=== PATIENT | female | born 1980 | race Two or more races ===

== ENCOUNTER 2019-05-09 23:41 | Emergency (ER) | payer OTHER ==
[2019-05-10 00:56] VITALS: BP 121/79; PULSE 81; TEMP 99.1; BMI 37.2
[2019-05-10] MEDS ORDERED: DIPHTH,PERTUSS(ACELL),TET 0.5 ML DISP.SYRIN IM ONE ×2 (01:42→02:17)
--- NOTE | 2019-05-10 01:42 | PDOC ---
History of Present Illness - General Chief Complaint: Pain, Acute Stated Complaint: INJURY Time Seen by Provider: 05/10/19 01:09 History Source: Patient - History of Present Illness Initial Comments: 05/10/19 01:52 38-year-old female reports that prior to arrival she stepped on a toy piece on the floor cut the left fifth toe at the PIP. Patient is able to wiggle her toes. Positive sensation neurovascularly intact. Past medical history of asthma. Last tetanus unknown Past History - Past Medical History Allergies/Adverse Reactions: Allergies Allergy/AdvReac Type Severity Reaction Status Date / Time No Known Allergies Allergy Verified 05/10/19 00:22 Home Medications: Ambulatory Orders Cephalexin Monohydrate [Keflex -] 250 mg PO Q8H #21 capsule 05/10/19 - Suicide/Smoking/Psychosocial Hx Smoking History: Never smoked Hx Alcohol Use: No Drug/Substance Use Hx: No Review of Systems - Review of Systems Able to Perform ROS?: Yes Is the patient limited Latvian proficient: No Integumentary: Yes: Other (laceration) *Physical Exam - Vital Signs Last Vital Signs Temp Pulse Resp BP Pulse Ox 99.1 F 81 16 121/79 100 05/09/19 23:55 05/09/19 23:55 05/09/19 23:55 05/09/19 23:55 05/09/19 23:55 - Physical Exam General Appearance: Yes: Appropriately Dressed Musculoskeletal: positive: Other (left fifth toe laceration at theplantar aspect at PIP approximately 2 cm. Neurovascularly intact. Able to move the toe) Integumentary: positive: Normal Color, Dry, Warm Neurologic: positive: Fully Oriented, Alert, Normal Mood/Affect Procedures - Consent Consent obtained: Verbal - Laceration/Wound Repair Left Plantar 5th digit Wound Length: to 2.5 cm (legt 5th toe) Wound Explored: clean Wound's Depth, Shape: linear Irrigated w/ Saline: Yes Betadine Prep: Yes Anesthesia: 1% Lidocaine Amount of Anesthetic (ccs): 1 Wound Debrided: minimal Wound Repaired With: Sutures Suture Size/Type: 4:0 Number of Sutures: 5 Layer Closure: No Sterile Dressing Applied: Yes (toe lex taped. bacitracin applied.) Progress Note - Progress Note Progress Note: A: toe laceration P: see procedure note cephalexin wound check with pcp in 2 days if increased redness or pain *DC/Admit/Observation/Transfer Diagnosis at time of Disposition: Laceration of toe Qualifiers: Encounter type: initial encounter Toe: lesser toe Damage to nail status: without damage Foreign body presence: without foreign body Laterality: left Qualified Code(s): S91.115A - Laceration without foreign body of left lesser toe (s) without damage to nail, initial encounter - Discharge Dispostion Disposition: HOME Condition at time of disposition: Fair - Prescriptions Prescriptions: Cephalexin Monohydrate [Keflex -] 250 mg PO Q8H #21 capsule - Referrals Referrals: Ariel Lucero MD [Primary Care Provider] - - Patient Instructions Printed Discharge Instructions: DI for Laceration Repair -- Simple Additional Instructions: Keep area clean dry and intact Keep dressing on until tomorrow If any increased bleeding through the dressing return immediately to emergency department you may put bacitracin to the site Please return in 10 days for suture removal. Please return immediately to emergency department or primary care physician with any increased redness, swelling, signs of infection - Post Discharge Activity Forms/Work/School Notes: Back to Work
--- NOTE | 2019-05-10 04:11 | PDOC ---
*Physical Exam - Vital Signs Last Vital Signs Temp Pulse Resp BP Pulse Ox 99.1 F 81 16 121/79 100 05/09/19 23:55 05/09/19 23:55 05/09/19 23:55 05/09/19 23:55 05/09/19 23:55 ED Treatment Course - Medications Given in the ED: ED Medications Discontinued Medications Generic Name Dose Route Start Last Admin Trade Name Freq PRN Reason Stop Dose Admin Diphtheria/Tetanus/Acell Pertussis 0.5 ml 05/10/19 01:42 05/10/19 02:22 Boostrix - IM 05/10/19 01:43 0.5 ml .ONCE ONE Administration Medical Decision Making - Medical Decision Making 05/10/19 04:02 Patient seen by the advanced practice provider under my direct supervision. Ancillary testing reviewed as necessary. I agree with plan as outlined by the advanced practice provider. *DC/Admit/Observation/Transfer Diagnosis at time of Disposition: Laceration of toe Qualifiers: Encounter type: initial encounter Toe: lesser toe Damage to nail status: without damage Foreign body presence: without foreign body Laterality: left Qualified Code(s): S91.115A - Laceration without foreign body of left lesser toe (s) without damage to nail, initial encounter - Discharge Dispostion Condition at time of disposition: Fair - Prescriptions Prescriptions: Cephalexin Monohydrate [Keflex -] 250 mg PO Q8H #21 capsule - Referrals Referrals: Ariel Lucero MD [Primary Care Provider] - - Patient Instructions Printed Discharge Instructions: DI for Laceration Repair -- Simple Additional Instructions: Keep area clean dry and intact Keep dressing on until tomorrow If any increased bleeding through the dressing return immediately to emergency department you may put bacitracin to the site Please return in 10 days for suture removal. Please return immediately to emergency department or primary care physician with any increased redness, swelling, signs of infection - Post Discharge Activity Forms/Work/School Notes: Back to Work
== END 2019-05-10 04:37 | disposition home or self-care (01) ==
LOC: JER 23:41
PROC: 0HQNXZZ Repair Left Foot Skin, External Approach (ICD-10-PCS; principal; 2019-05-09)
PROC: 2W3VXYZ Immobilization of Left Toe using Other Device (ICD-10-PCS; 2019-05-09)
DX: S91.115A Laceration without foreign body of left lesser toe(s) without damage to nail, initial encounter (principal); W22.8XXA Striking against or struck by other objects, initial encounter; Y93.89 Activity, other specified; Y92.009 Unspecified place in unspecified non-institutional (private) residence as the place of occurrence of the external cause; J45.909 Unspecified asthma, uncomplicated
CPT/HCPCS: 12001-25; 29550; 90715; 99281-25